=== PATIENT | female | born 1935 | race Two or more races ===

== ENCOUNTER 2020-05-09 07:07 | Day surgery (SDC) | payer MEDICARE, OTHER ==
--- NOTE | 2020-05-08 18:14 | Pre-op HX & Phy Repo 2 SIG ---
DATE OF ADMISSION: 05/09/2020 DATE OF SURGERY: 05/09/2020. PREOPERATIVE DIAGNOSIS: Dislocated intraocular lens, left eye. PROCEDURES TO BE PERFORMED: Pars plana vitrectomy with removal and replacement of dislocated intraocular lens. BRIEF NOTE: This is the first [facility] admission for the patient, who is a very nice 84-year-old lady, who complained of poor vision in the left eye after cataract surgery. She had a successful operation on the right eye on March 14 with good vision. The left eye was done in March, but subsequently she developed diminished vision and was found to have an inferiorly dislocated lens implant. She is admitted for removal and replacement. PAST MEDICAL HISTORY: Remarkable for significant Parkinson's disease as well as arthritis. MEDICATIONS: She is maintained on doxycycline and omeprazole as well as antiinflammatory ophthalmic drops. PAST SURGICAL HISTORY: She had a previous hernia repair, femur repair and hysterectomy. ALLERGIES: She is allergic to penicillin. PHYSICAL EXAMINATION: Best vision at the time of admission was 20/30 in the right eye, counting fingers at 6 feet in the left with pressures of 12 and 11. The anterior segment on the right showed a posterior chamber lens in excellent position. The left showed vitreous into the anterior chamber. There was a slightly irregular pupil. A posterior chamber lens was seen to be dislocated towards the inferior vitreous. Fundus exam of the right eye showed a normal posterior pole. There was related vitreous separation. The left fundus showed the lens dislocation down to 6. There was a posterior vitreous detachment. No retinal tears were seen. ASSESSMENT: Dislocated intraocular lens, left eye. PLAN: The plan is to perform a vitrectomy as noted above with removal of vitreous in both the anterior and posterior chambers. There will also be placement of an intra-ocular lens, most likely anterior. The risks and benefits of surgery were gone over with the patient with potential for infection, retinal detachment, glaucoma, hemorrhage, remote possibility of loss of the eye, and risk of anesthesia was discussed. The patient understands and consents to the surgery, which will be performed on tomorrow morning. Dheeraj Chavarria M.D. DR: GA JOB#: [id number] CC: ILEANA
[~2020-05-09] VITALS: Ht 170.2 cm; Wt 61.2 kg
[2020-05-09] VITALS (7 sets, daily range): BP systolic 139–166; BP diastolic 72–86
[~2020-05-09 07:07] MED LIST: VIBRAMYCIN100 MG ORAL; Vit B12 PO; Vit D PO; prednisoLONE acetate 1% Opth Susp 1ml LEFT EYE ONE
[2020-05-09] MEDS: Phenylephrine 2.5% Op 2ml Soln LEFT EYE SCH ×3 (08:10→08:29)
[2020-05-09] MEDS: Cyclopentolate 1% Opth Sol 2ml LEFT EYE SCH ×3 (08:10→08:28)
[2020-05-09] MEDS: Flurbiprofen 0.03% Opth Sol 2.5ml LEFT EYE SCH ×3 (08:11→08:29)
[2020-05-09] MEDS: Vigamox Opth Soln 3ml LEFT EYE SCH ×3 (08:11→08:29)
[2020-05-09] MEDS ORDERED: Kenalog-40 1ml Vial ONE (08:17)
[2020-05-09] MEDS ORDERED: Lidocaine 2% MPF 5ml Vial INJ ONE (08:17)
[2020-05-09] MEDS ORDERED: EPINEPHrine 1mg/1ml Amp ONE (08:17)
[2020-05-09] MEDS ORDERED: BSS 500ml btl ONE (08:18)
[2020-05-09] MEDS ORDERED: Kenalog-10 5ml Inj ONE (08:18)
[2020-05-09] MEDS ORDERED: prednisoLONE acetate 1% Opth Susp 1ml ONE (08:18)
[2020-05-09] MEDS ORDERED: BSS 15ml BTL ONE (08:18)
[2020-05-09] MEDS ORDERED: Polysporin Opth Oint 3.5gm ONE (08:18)
[2020-05-09] MEDS ORDERED: Povidone-Iodine 5% opth solution ONE (08:19)
[2020-05-09] MEDS ORDERED: Tetracaine 0.5% Opth 4ml Soln ONE (08:19)
[2020-05-09] MEDS ORDERED: Hyaluronidase 150 units/ml vial ONE (08:19)
[2020-05-09] MEDS ORDERED: Bupivacaine 0.75% 30ml vial INJ ONE (08:19)
[2020-05-09] MEDS ORDERED: Sodium Hyaluronate 10 mg/ml 0.85ml ONE (08:19)
[2020-05-09 08:29] LABS: ANION GAP 8 mmol/L (5-15); BLOOD UREA NITROGEN 12 mg/dL (7-18); CARBON DIOXIDE 28 MMOL/L (21-32); CHLORIDE 105 MMOL/L (98-107); CREATININE 0.8 MG/DL (0.55-1.30); POTASSIUM 4.5 MMOL/L (3.5-5.1); SODIUM 141 MMOL/L (136-145)
[2020-05-09 08:33] LABS: BASOPHILS % (AUTO) 0.7 % (0.0-2.0); EOSINOPHILS % (AUTO) 1.2 % (0.0-3.0); HEMATOCRIT 42.5 % (37.0-47.0); HEMOGLOBIN 13.6 G/DL (12.0-16.0); LYMPHOCYTES % (AUTO) 22.9 % (20.0-45.0); MEAN CORPUSCULAR VOLUME 90 FL (80-99); MONOCYTES % (AUTO) 4.7 % (1.0-10.0); NEUTROPHILS % (AUTO) 70.5 % (45.0-75.0); PLATELET COUNT 221 K/UL (150-450); RED CELL DISTRIBUTION WIDTH 12.9 % (11.6-14.8); WHITE BLOOD COUNT 8.8 K/UL (4.8-10.8)
[2020-05-09 08:38] LABS: INR 1.1 (0.9-1.1)
[2020-05-09] MEDS ORDERED: Carbachol 0.01% Op Soln 1.5ml vial ONE ×2 (08:54→11:05)
[2020-05-09] MEDS ORDERED: fentaNYL 100 mcg/2 mL IV ONE (09:21)
[2020-05-09] MEDS ORDERED: NS Irrig 1000ml ONE (10:00)
[2020-05-09] MEDS ORDERED: Sterile Water Irrig 1000ml IRRIG ONE (10:00)
[2020-05-09] MEDS ORDERED: LR 1000ml ONE (10:00)
--- NOTE | 2020-05-09 10:01 | Pre-Procedure Note/Attestation ---
Pre-Procedure Note/Attestation Complete Prior to Procedure Planned Procedure: left Procedure Narrative: PPV, remove and replace dislocated IOL LEFT eye Indications for Procedure Pre-Operative Diagnosis: Poor vision. Dislocated IOL Left eye Attestation I attest that I discussed the nature of the procedure; its benefits; risks and complications; and alternatives (and the risks and benefits of such alternatives ), prior to the procedure, with the patient (or the patient's legal lead customer service representative). I attest that, if there was a reasonable possibility of needing a blood transfusion, the patient (or the patient's legal lead customer service representative) was given the [facility] standardized written summary, pursuant to the [place] Blood Safety Act ([place] Health and Safety Code # 1645, as amended). I attest that I re-evaluated the patient just prior to the surgery and that there has been no change in the patient's H&P, except as documented below: Dheeraj Chavarria MD May 09, 2020 10:01
[2020-05-09] MEDS ORDERED: Lidocaine 1% MPF 10mg/ml 5ml ONE (10:07)
[2020-05-09] MEDS ORDERED: HYDROcodone/Acetamin 5/325 tab ORAL PRN (10:15)
[2020-05-09] MEDS ORDERED: LR 1000ml 1,000 ML IVLG SCH (10:44)
--- NOTE | 2020-05-09 10:44 | Anethesia Preoperative Eval ---
Anesthesia Pre-op PMH/ROS General Date of Evaluation: May 09, 2020 Time of Evaluation: 10:08 Anesthesiologist: Nicole ASA Score: ASA 3 Mallampati Score Class I : Soft palate, uvula, fauces, pillars visible Class II: Soft palate, uvula, fauces visible Class III: Soft palate, base of uvula visible Class IV: Only hard plate visible Mallampati Classification: Class II Surgeon: Deon Diagnosis: Dislocated lens L eye Surgical Procedure: L eye PPV Anesthesia History: none Family History: no anesthesia problems Allergies: Coded Allergies: AMPICILLIN (Verified Allergy, Unknown, 05/08/20) Medications: see eMAR Patient NPO?: Yes Past Medical History Cardiovascular: Reports: HTN - borderline; Denies: CAD, PA, valve dz, arrhythmia, other Pulmonary: Denies: asthma, COPD, EMORY, other Gastrointestinal/Genitourinary: Reports: GERD; Denies: CRI, ESRD, other Neurologic/Psychiatric: Reports: other - Parkinsons; Denies: dementia, CVA, depression/anxiety, TIA Endocrine: Reports: hypothyroidism; Denies: DM, steroids, other HEENT: Reports: cataract (L), cataract (R) - s/p Sx bilateral Hematology/Immune: Denies: anemia, DVT, bleeding disorder, other Musculoskeletal/Integumentary: Reports: OA, other - osteoporosis; Denies: RA, DJD, DDD, edema PMH Narrative: as above PSxH Narrative: Bilateral cataracts, hernia repair, hysterectomy, Hip Sx Anesthesia Pre-op Phys. Exam Physician Exam Last Vital Signs Date Time Temp Pulse Resp B/P (MAP) Pulse Ox O2 Delivery O2 Flow Rate FiO2 05/09/20 08:23 Room Air 05/09/20 08:17 97.8 94 18 139/77 97 Constitutional: NAD Neurologic: CN 2-12 intact Cardiovascular: RRR, no M/R/G Respiratory: CTA Gastrointestinal: S/NT/ND Airway Exam Mallampati Score: Class II MO: limited Neck: stiff ROM: limited Teeth: missing Dentures: no upper, no lower Anesthesia Pre-op A/P Labs Hematology Test 05/09/20 08:00 White Blood Count 8.8 K/UL (4.8-10.8) Red Blood Count 4.70 M/UL (4.20-5.40) Hemoglobin 13.6 G/DL (12.0-16.0) Hematocrit 42.5 % (37.0-47.0) Mean Corpuscular Volume 90 FL (80-99) Mean Corpuscular Hemoglobin 28.9 PG (27.0-31.0) Mean Corpuscular Hemoglobin Concent 32.0 G/DL (32.0-36.0) Red Cell Distribution Width 12.9 % (11.6-14.8) Platelet Count 221 K/UL (150-450) Mean Platelet Volume 9.1 FL (6.5-10.1) Neutrophils (%) (Auto) 70.5 % (45.0-75.0) Lymphocytes (%) (Auto) 22.9 % (20.0-45.0) Monocytes (%) (Auto) 4.7 % (1.0-10.0) Eosinophils (%) (Auto) 1.2 % (0.0-3.0) Basophils (%) (Auto) 0.7 % (0.0-2.0) Coagulation Test 05/09/20 08:00 Prothrombin Time 11.9 SEC (9.30-11.50) H Prothromb Time International Ratio 1.1 (0.9-1.1) Activated Partial Thromboplast Time 29 SEC (23-33) Chemistry Test 05/09/20 08:00 Sodium Level 141 MMOL/L (136-145) Potassium Level 4.5 MMOL/L (3.5-5.1) Chloride Level 105 MMOL/L (98-107) Carbon Dioxide Level 28 MMOL/L (21-32) Anion Gap 8 mmol/L (5-15) Blood Urea Nitrogen 12 mg/dL (7-18) Creatinine 0.8 MG/DL (0.55-1.30) Estimat Glomerular Filtration Rate > 60 mL/min (>60) Glucose Level 100 MG/DL (74-106) Calcium Level 9.0 MG/DL (8.5-10.1) Studies Pre-op Studies: EKG Risk Assessment & Plan Assessment: ASA 3 Plan: GA with LMA,surgeon request Status Change Before Surgery: No Pre-Antibiotics Drug: none Ho Rivera MD May 09, 2020 10:44
[2020-05-09] MEDS ORDERED: fentaNYL 100 mcg/2 mL IV PRN (10:45)
--- NOTE | 2020-05-09 10:45 | Pre-op HX & Phy Repo 2 SIG ---
DATE OF ADMISSION: 05/09/2020 PRESURGICAL INTERNAL MEDICINE HISTORY AND PHYSICAL DATE OF EVALUATION: 05/09/2020 REASON FOR EVALUATION: I was asked by Dr. Dheeraj Chavarria to see this 84-year-old female who is going for elective surgery on the left eye. The patient has dislocated lens, left eye. The patient was evaluated, chart was reviewed in the outpatient procedure department of [facility]. The patient is alert. Vital signs, blood pressure 139/77, temperature 97.8, pulse 94, respirations 18, O2 saturation 97%. PAST MEDICAL HISTORY/REVIEW OF SYSTEMS: Remarkable for Parkinson disease, history of TIA many years ago. No hypertension. No diabetes mellitus. Denies history of chest pain, palpitation, or heart attack. No history of stroke. Denies history of hepatitis or GI bleeding. No thyroid problem. No renal failure. PAST SURGICAL HISTORY: Hysterectomy many years ago, eye surgery, recent cataract, right hip replacement secondary to fall and fracture, and inguinal hernia repair. FAMILY HISTORY: Father from heart attack and mother of old age. ALLERGIES: To penicillin, develop rashes. PRESENT MEDICATIONS: Include only vitamins B and D. SOCIAL HISTORY: Denied tobacco use or alcohol use. No street drugs. PHYSICAL EXAMINATION: GENERAL: Alert, well-developed and well-nourished female in her 80s. SKIN: Clear, dry, warm. No rashes. LYMPHATICS: Lymph nodes not enlarged. HEENT: Head is normocephalic and atraumatic. Ears, clear. Eyes, full description per Dr. Dheeraj Chavarria. Mouth, clear and moist. No dentures. NECK: No jugular venous distention. Carotid artery + 2. No palpable mass. Trachea midline. CHEST: No deformity or asymmetry. LUNGS: Clear to auscultation and percussion. No rales or rhonchi. HEART: Sinus rhythm. No ectopy. No murmur. No S3, S4. ABDOMEN: Soft, benign. Liver and spleen not enlarged. No rebound. No palpable mass. EXTREMITIES: No edema. No varicose vein. GENITOURINARY: No dysuria. No CVA tenderness. NEUROLOGIC: Tremor, Parkinson disease. The patient ambulates with a walker. LABORATORY AND DIAGNOSTIC DATA: Electrocardiogram on 03/08/2020, normal sinus rhythm, probably septal IL. The patient did not eat or drink from 4 p.m. yesterday. Lab work pending. IMPRESSION: 1. Dislocated lens, left eye. 2. Parkinson disease. 3. Septal myocardial infarction by EKG. PLAN: Pars plana vitrectomy, removal and replacement of intra-ocular lens, left eye per Dr. Dheeraj Chavarria. CONCLUSION: The patient is an 84-year-old female with history of Parkinson disease, not treated. 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 The patient's vital signs are stable. The patient's condition optimized for surgery. She did not eat or drink from 4 p.m. yesterday. Thank you very much, Dr. Chavarria, for privilege to participate in presurgical care of this interesting patient. Marya Miramontes M.D. DR: GENE JOB#: [id number] CC:
[2020-05-09] MEDS ORDERED: Pilocarpine 1% Opth 15ml Soln LEFT EYE ONE (11:30)
--- NOTE | 2020-05-09 11:51 | Brief Operative Note ---
Immediate Post Operative Note Operative Note Chief Complaint: Poor vision LEFT eye Pre-op Diagnosis: Dislocated IOL Left eye Procedure: PPV, removal of dislocated IOL, Placement of AC IOL OS Post-op Diagnosis: same as pre-op Surgeon: Deon Freedom Of Information Officer: terry Anesthesiologist: Nicole Anesthesia: general Specimen: none Complications: none Condition: stable Fluids: Per Anesthesia Estimated Blood Loss: none Drains: none Implant(s) used?: Yes - 15.0 D AC IOL 12.5 mm Dheeraj Chavarria MD May 09, 2020 11:51
--- NOTE | 2020-05-09 11:58 | Immediate Post-Op Evaluation ---
Immediate Post-Op Evalulation Immediate Post-Op Evalulation Procedure: L eye PPV, replacement of IOL Date of Evaluation: May 09, 2020 Time of Evaluation: 11:56 IV Fluids: 800 Blood Products: none Estimated Blood Loss: min Urinary Output: none Blood Pressure Systolic: 115 Blood Pressure Diastolic: 77 Pulse Rate: 84 Respiratory Rate: 22 O2 Sat by Pulse Oximetry: 98 Temperature (Fahrenheit): 98.2 Pain Score (1-10): 1 Nausea: No Vomiting: No Complications none Patient Status: reacts, patent, none Hydration Status: adequate Ho Rivera MD May 09, 2020 11:58
--- NOTE | 2020-05-09 13:53 | 48 Hour Post Anesthesia Eval ---
Post Anesthesia Evaluation Procedure: L eye PPV, replacement of IOL Date of Evaluation: May 09, 2020 Time of Evaluation: 13:52 Blood Pressure Systolic: 146 0: 72 Pulse Rate: 68 Respiratory Rate: 20 Temperature (Fahrenheit): 97.6 O2 Sat by Pulse Oximetry: 98 Airway: patent Nausea: No Vomiting: No Pain Intensity: 1 Hydration Status: adequate Cardiopulmonary Status: stable Mental Status/LOC: patient returned to baseline Follow-up Care/Observations: n/a Post-Anesthesia Complications: none Follow-up care needed: ready to discharge Ho Rivera MD May 09, 2020 13:53
--- NOTE | 2020-05-09 18:00 | Operative Note - Dictated ---
DATE OF OPERATION: 05/09/2020 PREOPERATIVE DIAGNOSIS: Dislocated intraocular lens, left eye. POSTOPERATIVE DIAGNOSIS: Dislocated intraocular lens, left eye. PROCEDURES: 1. Pars plana vitrectomy. 2. Removal of dislocated intraocular lens. 3. Insertion of anterior chamber intra-ocular lens. 4. Peripheral iridotomy. SURGEON: Dheeraj Chavarria MD. UNIFIED COMMUNICATIONS ARCHITECT: None. ANESTHESIA: LMA general. ANESTHESIOLOGIST: Ho Rivera MD. JUSTIFICATION FOR SURGERY: This 84-year-old lady underwent cataract surgery last month and soon afterwards noted a decreased vision and was found to have a dislocated lens. She was admitted for removal and replacement. BRIEF NOTE: The patient was brought to the operative room and placed on OR table in supine position. After time-out was performed and agreed upon by the staff, general LMA anesthesia was induced by Dr. Rivera. Retrobulbar and Van Lint blocks were then given in the standard way. When the blocks taken effect, she was prepped and draped in normal manner. The lid speculum was inserted into the left eye. Using a 23-gauge trocar system, cannulas were placed in all except infranasal quadrant. Infusion secured inferotemporally. A 5 o'clock hour peritomy was made at the superior limbus. Vitrectomy was begun posterior to the intra-ocular lens. Vitreous entering the anterior chamber was removed as well as residual capsular debris. The vitrectomy was carried further posteriorly. The anterior portion of the intraocular lens was noted to be just below the central pupil at 6 o'clock. This was engaged with the intra-ocular forceps and gently maneuvered into the anterior chamber. Miochol was used to close the pupil. The vitrectomy was continued posterior leaving a small vitreous skirt. Kenalog was used to aid in visualization of the vitreous. Careful scleral depression was done and no peripheral tears, detachment, or other damage to the peripheral retina was noted. Additional Miochol was then used to close the pupil further. The anterior chamber was entered just at the surgical limbus on the corneal side using a Super Sharp. Healon was then placed in the anterior chamber. The wound was measured at 6 mm and using a keratome the wound was enlarged with the anterior chamber being entered. The intra-ocular lens was then easily removed. Using the lens glide, a new anterior chamber lens 15 diopters, 12.5 mm in diameter was inserted and placed in position. The pupil was noted to be nicely round with the lens successfully placed in the angle. The superior wound was then closed with 5 interrupted sutures of 10-0 nylon with the knots buried. A peripheral iridotomy was then cut with the vitreous cutter on low speed at the 10 o'clock position. This went without difficulty. The Healon was evacuated from the anterior chamber. The sclerotomies were then closed with 8-0 Vicryl suture and overlying conjunctiva was secured with 6-0 plain catgut. Subconjunctival Decadron and gentamicin were then injected and topical pilocarpine 2%, prednisolone and moxifloxacin drops were instilled. Maxitrol ointment was also placed. The eye was patched and shielded. The patient taken to recovery in excellent condition. There were no complications. Dheeraj Chavarria M.D. DR: Elvin JOB#: [id number] CC: Dheeraj Chavarria M.D.; Fax#: [phone] MTDD
== END 2020-05-09 13:35 | disposition home or self-care (01) ==
LOC: SUR 07:07
DX: T85.22XA Displacement of intraocular lens, initial encounter (principal); Z98.42 Cataract extraction status, left eye; Z96.1 Presence of intraocular lens; H54.3 Unqualified visual loss, both eyes; G20 Parkinson's disease; K21.9 Gastro-esophageal reflux disease without esophagitis; E03.9 Hypothyroidism, unspecified; Z96.641 Presence of right artificial hip joint; M19.90 Unspecified osteoarthritis, unspecified site; M81.0 Age-related osteoporosis without current pathological fracture; I10 Essential (primary) hypertension; X58.XXXA Exposure to other specified factors, initial encounter; Y92.9 Unspecified place or not applicable; Z86.73 Personal history of transient ischemic attack (TIA), and cerebral infarction without residual deficits; Z90.710 Acquired absence of both cervix and uterus; Z88.0 Allergy status to penicillin
CPT/HCPCS: 36415; 66986; 67036; 80048; 85025; 85610; 85730; 94003; J0171; J1100; J2704; J3010; J3301; J3470; J3490; J7120; V2632; 94150